=== PATIENT | female | born 1965 | race Caucasian/White ===

== ENCOUNTER 2024-08-19 13:46 | Emergency (ER) | payer MEDICAID ==
[~2024-08-19] VITALS: Ht 167.6 cm; Wt 64.2 kg
[2024-08-19 13:47] VITALS: BP 120/68; PULSE 73; RESP 16; TEMP 98; O2SAT 97
[2024-08-19] MEDS ORDERED: PRED10TA23 PO (14:46)
[2024-08-19] MEDS ORDERED: AMOX-117 PO (14:46)
[2024-08-19] MEDS ORDERED: dexamethasone sod phosphate 10mg/ml inj PO STA (14:47)
[2024-08-19] MEDS: DEXAMETHASONE 6 MG TABLET PO STA (15:05)
[2024-08-19] MEDS: dexamethasone 4mg tablet PO STA (15:05)
[2024-08-19] MEDS: amox tr/potassium clavulanate 875/125mg TAB PO ONE (15:06)
== END 2024-08-19 15:15 | disposition home or self-care (01) ==
LOC: ER 13:47
DX: J32.8 Other chronic sinusitis (principal); Z88.5 Allergy status to narcotic agent; Z88.6 Allergy status to analgesic agent; Z79.52 Long term (current) use of systemic steroids
CPT/HCPCS: 71045; 87502; 87503; 99284; J8540

== ENCOUNTER 2024-10-09 15:55 | Emergency (ER) | payer MEDICAID ==
[~2024-10-09] VITALS: Ht 167.6 cm; Wt 62.5 kg
[2024-10-09 16:06] VITALS: BP 120/63; PULSE 63; RESP 18; O2SAT 100
[2024-10-09] MEDS ORDERED: ketorolac trometh 15mg/ml vial 15 MG/ML ML IV ONE (17:25)
[2024-10-09 17:38] LABS: BILIRUBIN,URINE NEGATIVE (Neg); CLARITY,URINE SLIGHTLY CLOUDY (Clear); COLOR,URINE YELLOW (Yellow); GLUCOSE, URINE NEGATIVE (Neg); KETONES,URINE >=80 mg/dl (Neg); LEUKOCYTE ESTERASE ,URINE MODERATE (Neg); NITRITES, URINE NEGATIVE (Neg); OCCULT BLOOD,URINE NEGATIVE (Neg); PROTEIN,URINE NEGATIVE (Neg); UROBILINOGEN,URINE 0.2 E.U/dL (0.2-1.0)
[2024-10-09 17:41] LABS: UA COLLECTION TYPE CLN CATCH MIDSTREAM
[2024-10-09 17:44] LABS: BACTERIA,URINE 1+ /HPF (Neg); MUCUS STRANDS FEW /LPF (Neg); RBC,URINE 0-2 /HPF (0-2); SQUAMOUS EPITHELIAL CELL,UR FEW /LPF (FEW); TRANSITIONAL EPI CELLS,URINE FEW /HPF; WBC,URINE 20-30 /HPF (0-4)
[2024-10-09 17:50] LABS: URINE HCG NEGATIVE (NEG)
[2024-10-09] MEDS ORDERED: CefTRIAXone 2gm/D5W 50ml BAG 50 ML IV ONE (17:55)
[2024-10-09] MEDS: ondansetron/PF 4mg/2ml inj IV ONE (18:01)
[2024-10-09] MEDS: ketorolac trometh 30MG/ML vial 30 MG/ML VIAL IV ONE (18:02)
[2024-10-09] MEDS: normal saline 1000ml 1,000 ML IV ONE (18:05)
[2024-10-09 18:17] LABS: BASOPHILS % (AUTO) 0.6 % (0-1); EOSINOPHILS # (AUTO) 0.1 X10'3 (0-0.9); EOSINOPHILS % (AUTO) 1.2 % (0-6); HEMATOCRIT 38.3 % (35.0-45.0); HEMOGLOBIN 12.6 g/dl (12.0-16.0); LYMPHOCYTES # (AUTO) 1.1 X10'3 (1.1-4.8); LYMPHOCYTES % (AUTO) 14.7 % (21-51); MEAN CORPUSCULAR HEMOGLOBIN 29.7 PG (27.0-31.0); MEAN CORPUSCULAR HGB CONC 32.9 g/dL (33.0-36.5); MEAN CORPUSCULAR VOLUME 90.4 FL (78-98); MEAN PLATELET VOLUME 8.5 FL (7.4-10.4); MONOCYTES # (AUTO) 0.5 X10'3 (0-0.9); MONOCYTES % (AUTO) 6.5 % (2-12); NEUTROPHILS # (AUTO) 5.6 X10'3 (1.8-7.7); PLATELET COUNT 297 X10'3 (140-440); RED BLOOD COUNT 4.23 X10'6 (4.20-5.60); RED CELL DISTRIBUTION WIDTH 14.2 % (11.5-14.5); WHITE BLOOD COUNT 7.3 X10'3 (4.5-11.0)
[2024-10-09 18:49] LABS: ALANINE AMINOTRANSFERASE 16 U/L (12-78); ALBUMIN 4.2 G/DL (3.4-5.0); ALBUMIN/GLOBULIN RATIO 1.4 (1.1-1.5); ALKALINE PHOSPHATASE 59 IU/L (46-116); ANION GAP 8 (8-16); ASPARTATE AMINO TRANSFERASE 20 U/L (10-37); BILIRUBIN,TOTAL 0.5 MG/DL (0.1-1.0); BLOOD UREA NITROGEN 17 MG/DL (7-18); BUN/CREATININE RATIO 18.1 (10.0-20.0); CALCIUM 9.4 MG/DL (8.5-10.1); CHLORIDE 103 MMOL/L (99-107); CREATININE 0.94 MG/DL (0.40-0.90); GLUCOSE 96 MG/DL (70-104); LIPASE 53 U/L (16-77); POTASSIUM 3.8 MMOL/L (3.5-5.1); SODIUM 137 MMOL/L (135-145); TOTAL PROTEIN 7.2 G/DL (6.4-8.2); eCRCL 59 ML/MIN; eGFR 61 ML/MIN
[2024-10-09] MEDS: metoclopramide 10mg tablet PO ONE (19:27)
[2024-10-09] MEDS: phenazopyridine 100mg tablet PO ONE (19:28)
[2024-10-09] MEDS: HYDROcodone/acetaminophen 5mg/325mg tablet PO ONE (19:28)
[2024-10-09] MEDS: CefTRIAXone 1000mg IM Kit (w/lidocaine diluent) IM ONE ×2 (19:28→19:30)
[2024-10-09] MEDS ORDERED: HYDR-3965 PO (19:40)
[2024-10-09] MEDS ORDERED: CEPH-585 PO (19:40)
[2024-10-09] MEDS ORDERED: ONDA-245 PO (19:40)
[2024-10-09 19:53] VITALS: TEMP 97.2
== END 2024-10-09 19:55 | disposition home or self-care (01) ==
LOC: ER 15:56
DX: N39.0 Urinary tract infection, site not specified (principal); M54.50 Low back pain, unspecified
CPT/HCPCS: 36415; 80053; 81001; 81025; 83690; 85025; 87088; 96361; 96372; 96374; 96375; 99284; J0696; J1885; J2405; J7030